=== PATIENT | female | born 1960 | race Two or more races ===

== ENCOUNTER 2023-08-29 18:35 | Emergency (ER) | payer OTHER ==
[~2023-08-29] VITALS: Ht 167.6 cm; Wt 54.9 kg
[2023-08-29 18:47] VITALS: TEMP 98.2
[2023-08-29 19:34] VITALS: BP 146/89; O2SAT 99
== END 2023-08-29 19:35 | disposition home or self-care (01) ==
LOC: ER 18:50
DX: S50.11XA Contusion of right forearm, initial encounter (principal); I10 Essential (primary) hypertension; E78.5 Hyperlipidemia, unspecified; X58.XXXA Exposure to other specified factors, initial encounter; Y93.89 Activity, other specified; Y92.89 Other specified places as the place of occurrence of the external cause; Y99.8 Other external cause status